=== PATIENT | female | born 1985 | race Hispanic/Latino ===

== ENCOUNTER 2017-03-11 12:21 | Emergency (ER) | payer SELFPAY ==
[2017-03-11] MEDS ORDERED: diphenhydrAMINE 50 MG/ML VIAL ONE (14:50)
[2017-03-11] MEDS ORDERED: Metoclopramide HCl 10 MG/2 ML VIAL ONE (14:50)
[2017-03-11] MEDS ORDERED: Ketorolac Tromethamine 30 MG/ML VIAL ONE (14:50)
== END 2017-03-11 16:00 | disposition home or self-care (01) ==
LOC: ERS 12:21
DX: G43.909 Migraine, unspecified, not intractable, without status migrainosus (principal)
CPT/HCPCS: 96365; 96375; J1200; J1885; J2765

== ENCOUNTER 2017-06-18 13:05 | Emergency (ER) | payer SELFPAY | END 2017-06-18 13:52 | disposition home or self-care (01) | LOC: ERS 13:05 | DX: L02.213 Cutaneous abscess of chest wall (principal); G43.909 Migraine, unspecified, not intractable, without status migrainosus | CPT/HCPCS: 99283 ==

== ENCOUNTER 2017-08-16 21:52 | Emergency (ER) | payer SELFPAY ==
[2017-08-16] MEDS ORDERED: Ibuprofen 200 MG TAB ONE ×2 (22:54→22:56)
== END 2017-08-16 22:59 | disposition home or self-care (01) ==
LOC: ERS 21:52
DX: N60.12 Diffuse cystic mastopathy of left breast (principal)
CPT/HCPCS: 99283

== ENCOUNTER 2017-09-04 07:19 | Emergency (ER) | payer SELFPAY ==
[2017-09-04] MEDS ORDERED: diphenhydrAMINE 50 MG/ML VIAL ONE (08:20)
[2017-09-04] MEDS ORDERED: Ketorolac Tromethamine 30 MG/ML VIAL ONE (08:20)
[2017-09-04] MEDS ORDERED: Metoclopramide HCl 10 MG/2 ML VIAL ONE (08:20)
== END 2017-09-04 10:20 | disposition home or self-care (01) ==
LOC: ERS 07:19
DX: G43.909 Migraine, unspecified, not intractable, without status migrainosus (principal); E66.9 Obesity, unspecified
CPT/HCPCS: 96365; 96375; J1200; J1885; J2765

== ENCOUNTER 2017-09-14 20:03 | Emergency (ER) | payer SELFPAY ==
[2017-09-14] MEDS ORDERED: Metoclopramide HCl 10 MG/2 ML VIAL ONE (21:11)
[2017-09-14] MEDS ORDERED: Acetaminophen 500 MG TAB ONE (21:11)
[2017-09-14] MEDS ORDERED: diphenhydrAMINE 50 MG/ML VIAL ONE (21:11)
[2017-09-14 21:16] LABS: Bilirubin Negative (Negative); Blood, Urine Moderate (Negative); Clarity CLEAR (Clear); Glucose, Urine (Dipstick) Negative (Negative); Leukocyte Small (Negative); Nitrite Negative (Negative); Protein, Urine (Dipstick) 30 mg/dL (Neg-Trace); Specific Gravity, Urine 1.025 (1.002-1.036); pH, Urine 5.5 (5.0-9.0)
[2017-09-14 21:18] LABS: Bacteria/HPF None Seen HPF (None Seen); Hyaline Casts/LPF 0-3 HYALINE CAST LPF (0-3 Hyaline); Pathc Cast-AUWi Flag 0.29 (0-2.49); Pregu Control Background? CLEAR/WHITE (CLR/WHITE); Pregu Control Bar Appear? YES (CONTROL BAR); Specific Gravity 1.025 (1.002-1.036); Squamous Epithelial 0-3 HPF (0-3)
[2017-09-14 21:23] LABS: Pregnancy Test - Urine (BHCG) Negative (Negative)
[2017-09-14] MEDS ORDERED: Ibuprofen 800 MG TAB ONE (23:39)
== END 2017-09-14 23:50 | disposition home or self-care (01) ==
LOC: ERS 20:03
DX: N39.0 Urinary tract infection, site not specified (principal); G43.909 Migraine, unspecified, not intractable, without status migrainosus
CPT/HCPCS: 81003; 81015; 81025; 96365; 96375; J1200; J2765

== ENCOUNTER 2018-01-07 17:12 | Emergency (ER) | payer SELFPAY ==
[2018-01-07 18:16] LABS: #Basophils 0.1 thou/uL (0.0-0.2); #Eosinphils 0.3 thou/uL (0.0-0.7); #Lymphocytes 2.9 thou/uL (1.20-3.40); #Monocytes 0.4 thou/uL (0.11-0.59); #Neutrophils 4.6 thou/uL (1.40-6.50); %Basophils 0.9 % (0.0-1.0); %Eosinophils 3.8 % (0.0-10.0); %Lymphocytes 35.2 % (21.0-51.0); %Monocytes 4.6 % (0.0-10.0); %Neutrophils 55.5 % (42.0-75.0); Hemoglobin 12.8 g/dL (12.0-16.0); Mean Corpuscular HGB CONC 33.4 g/dL (32.0-36.0); Mean Corpuscular Hemoglobin 30.3 pg (27.0-31.0); Mean Corpuscular Volume 90.7 fL (78.0-98.0); Mean Platelet Volume 6.9 fL (7.4-10.4); Platelet Count 306 thou/uL (130-400); Red Blood Cell (RBC) Count 4.22 mill/uL (4.20-5.40); White Blood Cell (WBC) Count 8.2 thou/uL (4.8-10.8)
[2018-01-07 18:35] LABS: ALT (SGPT) 21 U/L (8-55); AST (SGOT) 15 U/L (5-34); Albumin 4.2 g/dL (3.5-5.0); Alkaline Phosphatase 52 U/L (40-150); Anion Gap 11 mmol/L (10-20); BUN (Urea Nitrogen) 11 mg/dL (7.0-18.7); Bilirubin, Total 0.8 mg/dL (0.2-1.2); Calc. Creatinine Clearance 0 mL/min (70-130); Calcium 8.8 mg/dL (7.8-10.44); Carbon Dioxide 25 mmol/L (22-29); Chloride 108 mmol/L (98-107); Estimated GFR-MDRD Greater than 90; Glucose 104 mg/dL (70-105); Potassium 4.1 mmol/L (3.5-5.1); Protein, Total 7.2 g/dL (6.0-8.3); Sodium 140 mmol/L (136-145)
[2018-01-07] MEDS ORDERED: Metoclopramide HCl 10 MG/2 ML VIAL ONE (19:24)
[2018-01-07] MEDS ORDERED: diphenhydrAMINE 50 MG/ML VIAL ONE (19:26)
== END 2018-01-07 21:01 | disposition home or self-care (01) ==
LOC: ERS 17:12
DX: R51 Headache (principal)
CPT/HCPCS: 36415; 80053; 85025; 96361; 96374; 96375; J1200; J2765

== ENCOUNTER 2018-12-06 08:59 | Emergency (ER) | payer SELFPAY ==
[2018-12-06] MEDS ORDERED: diphenhydrAMINE 50 MG/ML VIAL ONE (09:43)
[2018-12-06] MEDS ORDERED: Acetaminophen 500 MG TAB ONE (09:43)
[2018-12-06] MEDS ORDERED: Metoclopramide HCl 10 MG/2 ML VIAL ONE (09:43)
[2018-12-06] MEDS ORDERED: Ketorolac Tromethamine 30 MG/ML VIAL ONE (09:43)
--- NOTE | 2018-12-06 09:55 | CT ---
Exam: Head CT without contrast HISTORY: Headache COMPARISON: 01/09/2016 FINDINGS: Hemorrhage: No intraparenchymal hemorrhage or extra-axial hematoma. Brain parenchyma: Cortical norris-white matter differentiation is preserved. No mass effect or midline shift. Basilar cisterns are patent. Ventricular system: Ventricles and sulci are patent and symmetric. Calvarium: Intact. Sinuses and mastoid air cells: Adequate aeration. IMPRESSION: No acute intracranial process.
== END 2018-12-06 11:45 | disposition home or self-care (01) ==
LOC: ERS 08:59
DX: G43.909 Migraine, unspecified, not intractable, without status migrainosus (principal)
CPT/HCPCS: 70450; 96361; 96374; 96375; J1200; J1885; J2765

== ENCOUNTER 2019-02-07 20:58 | Emergency (ER) | payer SELFPAY ==
[2019-02-07 21:33] LABS: #Eosinphils 0.2 thou/uL (0.0-0.7); #Lymphocytes 2.9 thou/uL (1.20-3.40); #Monocytes 0.4 thou/uL (0.11-0.59); %Basophils 0.2 % (0.0-1.0); %Eosinophils 3.3 % (0.0-10.0); %Lymphocytes 38.6 % (21.0-51.0); %Neutrophils 52.8 % (42.0-75.0); Hemoglobin 12.2 g/dL (12.0-16.0); Mean Corpuscular HGB CONC 34.8 g/dL (32.0-36.0); Mean Corpuscular Volume 89.1 fL (78.0-98.0); Mean Platelet Volume 6.6 fL (7.4-10.4); Platelet Count 238 thou/uL (130-400); RBC Distribution Width 12.6 % (11.5-14.5); Red Blood Cell (RBC) Count 3.93 mill/uL (4.20-5.40); White Blood Cell (WBC) Count 7.5 thou/uL (4.8-10.8)
[2019-02-07 21:53] LABS: ALT (SGPT) 24 U/L (8-55); AST (SGOT) 21 U/L (5-34); Albumin 4.2 g/dL (3.5-5.0); Alkaline Phosphatase 50 U/L (40-110); Anion Gap 11 mmol/L (10-20); BUN (Urea Nitrogen) 12 mg/dL (7.0-18.7); Bilirubin, Total 0.7 mg/dL (0.2-1.2); Calc. Creatinine Clearance 0 mL/min (70-130); Calcium 8.8 mg/dL (7.8-10.44); Carbon Dioxide 25 mmol/L (22-29); Chloride 107 mmol/L (98-107); Estimated GFR-MDRD Greater than 90; Globulin 2.6 g/dL (2.4-3.5); Glucose 104 mg/dL (70-105); Potassium 3.6 mmol/L (3.5-5.1); Protein, Total 6.8 g/dL (6.0-8.3); Sodium 139 mmol/L (136-145)
== END 2019-02-08 00:29 | disposition home or self-care (01) ==
LOC: ERS 20:58
DX: M79.622 Pain in left upper arm (principal); M79.621 Pain in right upper arm; M25.532 Pain in left wrist; M25.531 Pain in right wrist; R20.2 Paresthesia of skin; G43.909 Migraine, unspecified, not intractable, without status migrainosus
CPT/HCPCS: 36415; 80053; 84443; 85025; 99284

== ENCOUNTER 2022-11-28 17:54 | Emergency (ER) | payer MEDICAID, OTHER, SELFPAY | END 2022-11-28 19:11 | disposition home or self-care (01) | LOC: ERS 17:54 | DX: S90.122A Contusion of left lesser toe(s) without damage to nail, initial encounter (principal); J20.9 Acute bronchitis, unspecified; I10 Essential (primary) hypertension; W22.8XXA Striking against or struck by other objects, initial encounter ==

== ENCOUNTER 2023-10-22 08:22 | Emergency (ER) | payer SELFPAY ==
[2023-10-22] MEDS ORDERED: Ondansetron ODT 4 MG TAB ONE (08:53)
[2023-10-22 09:49] LABS: Bacteria/HPF None Seen HPF (None Seen); Bilirubin Negative (Negative); Blood, Urine Negative (Negative); CAUTI Indications for Culture Acute Hematuria; Clarity Clear (Clear); Glucose, Urine (Dipstick) Normal (Negative); Ketone, Urine Trace mg/dL (Negative); Leukocyte Negative Leu/uL (Negative); Nitrite Negative (Negative); Pregnancy Test - Urine (BHCG) Negative (Negative); Pregu Control Background? CLEAR/WHITE (CLR/WHITE); Pregu Control Bar Appear? YES (CONTROL BAR); Protein, Urine (Dipstick) 30 mg/dL (Neg-Trace); RBC/HPF 0-3 HPF (0-3); Specific Gravity 1.034 (1.002-1.036); Specific Gravity, Urine 1.034 (1.002-1.036); WBC/HPF 0-3 HPF (0-3)
[2023-10-22 09:51] LABS: Urine Culture Reflex No No
== END 2023-10-22 10:12 | disposition home or self-care (01) ==
LOC: ERS 08:22
DX: R11.2 Nausea with vomiting, unspecified (principal); I10 Essential (primary) hypertension
CPT/HCPCS: 81001; 81025; 99284; Q0162